=== PATIENT | female | born 1985 | race African-American/Black ===

== ENCOUNTER 2016-07-08 23:48 | Emergency (ER) | payer OTHER ==
[~2016-07-08] VITALS: Ht 160 cm; Wt 86.2 kg
[~2016-07-08 23:48] MED LIST: CYCLOBENZAPRINE10 M1 PO; IBUPROFEN800 M1 PO
--- NOTE | 2016-07-09 00:25 | ED CARDIAC/CP/PALPITATIONS ---
History of Present Illness General Chief Complaint: Palpitations Stated Complaint: "PER PT HEART RACING" Source: patient Exam Limitations: no limitations Vital Signs & Intake/Output Vital Signs & Intake/Output Vital Signs Date Time Temp Pulse Resp B/P Pulse O2 O2 Flow FiO2 Ox Delivery Rate 07/09 0045 98 Room Air 07/09 0044 98.3 62 18 125/81 97 Room Air Allergies Coded Allergies: ibuprofen (From MOTRIN) (RASH 03/18/16) shrimp (SOB 03/18/16) Triage Nurses Notes Reviewed? yes Onset: Gradual Duration: week(s):, waxing and waning Timing: recent history Quality/Severity: mild, moderate Location: central Radiation: no radiation Activities at Onset: none Prior Chest Pain/Card Workup: patient has had symptoms for the past several weeks. And was evaluated last fall. Modifying Factors: Improves With: rest. Patient currently breastfeeds: No HPI: 30-year-old woman with a history of palpitations, presents with several weeks of intermittent palpitations. She states, "I feel like my heart skips a beat. Sometimes I get extra beats." She notes that she never gets short of breath, lightheaded, or syncopal. She was evaluated for these symptoms in February 2016, and was placed on atenolol. She states that the atenolol has helped somewhat with the tremors and the palpitations. However, she looked on the Internet and was concerned that the atenolol might be causing her blood pressure to increase. She also was concerned that she might have A. fib. She has no chest pain shortness of breath dizziness. She presently feels well in the ED. Past History Travel History Traveled to [place] past 21 day No Medical History Any Pertinent Medical History? see below for history Neurological: NONE EENT: NONE Cardiovascular: NONE Respiratory: NONE Gastrointestinal: NONE Hepatic: NONE Renal: NONE Musculoskeletal: NONE Psychiatric: NONE Endocrine: NONE Surgical History Surgical History: non-contributory Psychosocial History What is your primary language Armenian Family History Hx Contributory? No Review of Systems Review of Systems Constitutional: Reports: no symptoms. EENTM: Reports: no symptoms. Respiratory: Reports: no symptoms. Cardiovascular: Reports: no symptoms. GI: Reports: no symptoms. Genitourinary: Reports: no symptoms. Musculoskeletal: Reports: no symptoms. Skin: Reports: no symptoms. Neurological/Psychological: Reports: no symptoms. Hematologic/Endocrine: Reports: no symptoms. Immunologic/Allergic: Reports: no symptoms. All Other Systems: Reviewed and Negative Physical Exam Physical Exam General Appearance: well developed/nourished, mild distress Head: atraumatic, normal appearance Eyes: Bilateral: normal appearance, PERRL, EOMI. Ears, Nose, Throat: normal pharynx, normal ENT inspection Neck: normal inspection, supple, full range of motion Respiratory: normal breath sounds, chest non-tender, no respiratory distress, quiet respiration, lungs clear Cardiovascular: regular rate/rhythm Gastrointestinal: normal bowel sounds, soft, non-tender, no organomegaly Back: normal inspection Extremities: normal inspection Neurologic/Psych: no motor/sensory deficits, awake, alert, oriented x 3 Skin: intact, normal color Core Measures ACS in differential dx? No Severe Sepsis Present: No Septic Shock Present: No Progress Differential Diagnosis: dictations versus panic versus PACs. I doubt A. fib or other serious cardiac dysrhythmia. Plan of Care: Orders Procedure Date/time Status Add-on Test (ER Only) 07/09 0025 Active THYROID STIMULATING HORMONE 07/09 0007 Complete TROPONIN LEVEL 07/08 2351 Complete HUMAN BETA HCG SCREEN 07/08 2351 Complete D-DIMER 07/08 2351 Complete COMPREHENSIVE METABOLIC PANEL 07/08 2351 Complete CBC WITHOUT DIFFERENTIAL 07/08 2351 Complete EKG 07/08 2350 Active Laboratory Tests 07/09/16 0007: Anion Gap 11, Estimated GFR > 60, BUN/Creatinine Ratio 22.0, Glucose 94, Calcium 9.8, Total Bilirubin 1.0, AST 14, ALT 23, Alkaline Phosphatase 65, Troponin I < 0.01, Total Protein 7.4, Albumin 4.3, Globulin 3.1, Albumin/Globulin Ratio 1.4, TSH 3.400, Total Beta HCG NEGATIVE, D-Dimer 232, CBC w Diff MAN DIFF ORDERED, RBC 4.01 L, MCV 94.5, MCH 32.1 H, RDW 12.6, MPV 8.0, Gran % 58.0, Lymphocytes % 37.3, Monocytes % 3.7, Eosinophils % 0.8, Basophils % 0.2, Absolute Granulocytes 7.1 H, Segmented Neutrophils 52, Absolute Lymphocytes 4.6 H, Lymphocytes 44, Monocytes 4, Absolute Monocytes 0.5, Absolute Eosinophils 0.1, Absolute Basophils 0, Platelet Estimate INCREASED, Normocytic RBCs VERIFIED, Normochromic RBCs VERIFIED, PUBS MCHC 33.9, Fld Total RBCs Counted 100 Initial ED EKG: normal axis, normal intervals, normal p-waves, normal QRS complex, normal sinus rhythm Departure Departure Disposition: HOME OR SELF CARE Condition: Stable Clinical Impression Primary Impression: Palpitations Referrals: JOE ALEXANDER MD (PCP/Family) Departure Forms: Customer Survey General Discharge Information Comments 07/09/16, 1:48am... pt stable in ED. Pulse in 60's. Labs benign, including tsh, dimer, trop. ekg benign... given the duration of her symptoms (intermittently for months), she merits outpt cards evaluation as well as close follow up with pmd. Critical Care Note Critical Care Note Critical Care Time: non-applicable
[2016-07-09 00:27] LABS: ABSOLUTE BASOPHIL COUNT 0 /CUMM (0.0-0.2); ABSOLUTE EOSINOPHIL COUNT 0.1 /CUMM (0.0-0.7); ABSOLUTE GRANULOCYTE CT 7.1 /CUMM (1.4-6.5); ABSOLUTE LYMPH COUNT 4.6 /CUMM (1.2-3.4); ABSOLUTE MONOCYTE COUNT 0.5 /CUMM (0.10-0.60); BASOPHIL % 0.2 % (0.0-2.0); EOSINOPHIL % 0.8 % (0-5); HEMATOCRIT 37.9 % (37-47); MEAN CORPUSCULAR HGB 32.1 PG (27.0-31.0); MEAN CORPUSCULAR HGB CONC 33.9 G/DL (33.0-37.0); MEAN CORPUSCULAR VOLUME 94.5 FL (81.0-99.0); PLATELET COUNT 438 /CUMM (130-400); RBC DISTRIBUTION WIDTH 12.6 % (11.5-14.5); RED BLOOD CELL CT 4.01 /CUMM (4.20-5.40); WHITE BLOOD CELL COUNT 12.3 /CUMM (4.8-10.8)
[2016-07-09 00:44] VITALS: BP 125/81
== END 2016-07-09 01:53 ==
LOC: ERH 23:48
PROVIDERS: Pediatrics
DX: R00.2 Palpitations (principal)
CPT/HCPCS: 93005; 93010